=== PATIENT | female | born 1975 | race Caucasian/White ===

== ENCOUNTER 2019-04-27 20:07 | Emergency (ER) | payer MEDICAID ==
[~2019-04-27] VITALS: Ht 157.5 cm; Wt 129.3 kg
[2019-04-27 20:17] VITALS: Ht 157.5 cm; Wt 129.3 kg
[2019-04-27 21:08] VITALS: BP 132/75
== END 2019-04-27 21:08 | disposition home or self-care (01) ==
LOC: ED 20:07
DX: J32.9 Chronic sinusitis, unspecified (principal); I10 Essential (primary) hypertension; E11.9 Type 2 diabetes mellitus without complications; E78.00 Pure hypercholesterolemia, unspecified; Z98.890 Other specified postprocedural states